=== PATIENT | female | born 1960 | race Caucasian/White ===

== ENCOUNTER → 2023-10-29 09:43 | Outpatient (REF) | payer MEDICARE, SELFPAY ==
--- NOTE | 2023-10-29 09:52 | CA_ITS ---
Transthoracic Echocardiogram Patient (Last, First, Middle): Angelia Brown, Gender: Female Date of : 1960 Age: 63 Procedure Date: 10/29/2023 Procedure Type: Transthoracic Echocardiogram Location: OP Height: 165.1 cm Weight: 65.77 kg BSA: 1.73 m2 Heart Rate: bpm BP: 118 / 60 mmHg Director Weights And Measures: JOSE Referring MD: Brenda Billings DO [employer] Operator: Finn Badillo MD Symptoms: RICE R06.09 Study Quality: Fair ECG Rhythm: Sinus Conclusions: - 1. Normal LV ejection fraction of 60 65% with grade 1 diastolic dysfunction 2. Mild aortic regurgitation 3. Normal RV systolic pressure 4. Trace to small circumferential pericardial effusion Findings Left Ventricle Normal left ventricular size, thickness, and systolic function. The visually estimated ejection fraction is between 60-65%. Spectral Doppler is indicative of an impaired relaxation filling pattern. E/E prime ratio is <8, consistent with normal filling pressures. Evidence suggests grade I (mild) diastolic dysfunction. Right Ventricle Normal right ventricular cavity size and systolic function. Atria The left atrium is normal in size. There is lipomatous hypertrophy of the interatrial septum. Interatrial shunt cannot be excluded. The right atrium is normal in size. Aortic Valve Normal aortic valve structure and function. There is no aortic valve stenosis. There is mild aortic valve regurgitation. Mitral Valve Normal mitral valve structure and function. There is trace mitral valve regurgitation. There is no mitral valve stenosis. Pulmonic Valve The pulmonic valve is likely normal. There is trace pulmonic valve regurgitation. Tricuspid Valve Normal tricuspid valve structure. There is trace tricuspid valve regurgitation. The right ventricular systolic pressure is normal. The right ventricular systolic pressure is 19 mmHg. Normal right atrial pressure. There is no evidence of pulmonary hypertension. Great Vessels All visible segments of the aorta are normal in size. The pulmonary artery was not well visualized. Venous The inferior vena cava is normal in size and collapses greater than 50% with inspiration. Pericardium/Pleural There is a trivial circumferential pericardial effusion. Prior Study Comparison No prior study available for comparison. Measurements 2D Linear Measurements IVSd: 0.98 0.6-0.9/0.6-1.0 cm LVIDd: 4.44 3.9-5.3/4.2-5.9 cm LVIDd Index: 2.57 2.4-3.2/2.2-3.1 cm/m2 LVIDs: 2.91 2.0-3.6 cm LVPWd: 1.00 0.7-1.1 cm Ao Root: 2.60 2.1-3.5 cm LA Diam: 3.90 2.7-3.8/3.0-4.0 cm LAIDs Index: 2.25 1.5-2.3 cm/m2 LV Mass: 183.78 67-162/88-224 g LV Mass Index: 106.23 43-95/49-115 g/m2 LVOT Diam: 2.00 3.0+(-)1.3 cm Mitral Valve MV VTI: 0.30 MV Pk Paul: 1.13 MV Mn Paul: 0.56 MV Pk Grad: 5.00 MV Mn Grad: 2.00 MV Pk E: 0.83 MV PK A: 1.05 MV Decel Time: 172.00 E/A: 0.80 E'Lateral: 6.31 E'Medial: 4.79 E/E' Med: 17.30 E/E' Lat: 13.10 PHT: 50.00 MVA PHT: 4.40 MVA Continuity: 2.87 Decel [place]berson: 4.82 Aortic Valve AoV Pk Paul: 1.72 AoV Mn Paul: 1.09 AoV VTI: 0.41 AoV Pk Grad: 12.00 Aov Mn Grad: 6.00 JEFFREY Cont.VTI: 2.09 AI Pk Paul: 4.02 AI VTI: 2.25 AI [place]: 1.83 LVOT LVOT Pk Paul: 1.17 LVOT Mn Paul: 0.72 LVOT VTI: 0.27 LVOT Pk Grad: 5.00 LVOT Mn Grad: 3.00 LVOT Diam: 2.00 LVOT Area: 3.14 Diastolic Function MV Pk E: 0.83 MV Pk A: 1.05 E/A: 0.80 E'Medial: 4.79 E/E' Med: 17.30 E' Laterial: 6.31 E/E' Lat: 13.10 Right Ventricle TAPSE (mm): 22.00 Tricuspid Valve TR Pk Paul: 2.02 TR Pk Grad: 16.00 RA Press: 3.00 RVSP: 19.00 Great Vessels Aorta Ao Root-2D: 2.60 2.0-3.7 cm Ao Asc: 3.00 2.1-3.4 cm Pulmonary Valve PV Pk Paul: 1.06 Peak PV Grad: 4.00 Updated in Other Vendor System with Status of Final Finn Badillo MD electronically signed on 10/29/2023 1:15:28 PM with status of Final
== END ==
LOC: HO.CARD 09:43
PROVIDERS: PCP Family Medicine; Visit Provider Family Medicine
DX: R06.09 Other forms of dyspnea (principal)
CPT/HCPCS: 93306

== ENCOUNTER → 2023-10-29 09:52 | Outpatient (BNV) | payer MEDICARE, SELFPAY | PROVIDERS: PCP Family Medicine; Visit Provider Internal Medicine Cardiovascular Disease | DX: I35.1 Nonrheumatic aortic (valve) insufficiency (principal) | CPT/HCPCS: 93306 ==